=== PATIENT | male | born 1970 | race Caucasian/White ===

== ENCOUNTER 2017-03-01 08:38 | Emergency (ER) | payer BC ==
--- NOTE | ~2017-03-01 | CR181 ---
[facility] Service of [facility] & [facility] RADIOLOGY TEXT RESULTS PATIENT: MONET SMITH LOCATION: [facility] : 66 UNIT #: [id number] AGE: [address]: Minal Núñez SEX: M ORDER DR: [id number] [facility] [address] [place], [place] [address] [id number] MR#: [id number] Acc #: [id number] NAME: MONET SMITH : 1970 SEX: M STUDY DATE/TIME: 03/01/2017 10:03 UNIT: [facility] ROOM: STUDY DESCRIPTION: CR Lumbar Spine 2 or 3 Views Attending Physician: Minal Núñez P.A.-C. Ordering Physician: Minal Núñez P.A.-C. Primary Care Physician: [facility]. MEDICAL IMAGING REPORT This report is preliminary unless electronic signature is present EXAM Lumbosacral spine, 3 views. HISTORY Low back pain beginning Sunday night after heavy lifting. TECHNIQUE AP, lateral, and spot views are submitted. FINDINGS Lumbar alignment is normal. There is marginal spur formation most prominent at L3-4. Vertebral body height is maintained. There is evidence of facet arthrosis at the lower 3 lumbar levels. CONCLUSION Lumbar degenerative disc and facet disease. No acute findings. Dictated by... Carroll Mayes M.D. THIS IS AN ELECTRONICALLY VERIFIED REPORT Carroll Mayes M.D. at 03/04/2017 9:18 AM LI/lulu TD: 03/01/2017 12:21 JOB #: [id number] MEDICAL IMAGING REPORT Page 1 of 1 COPY
[2017-03-01 10:08] LABS: URINE SOURCE CLEAN CATCH
[2017-03-01 10:21] LABS: URINE APPEARANCE CLEAR; URINE BILIRUBIN NEG (NEG); URINE BLOOD NEG (NEG); URINE COLOR YELLOW; URINE GLUCOSE NEG (NEG); URINE KETONE NEG (NEG); URINE LEUKOCYTE ESTERASE NEG (NEG); URINE NITRATE NEG (NEG); URINE PH 7.5 (5-8); URINE PROTEIN NEG (NEG); URINE SPECIFIC GRAVITY 1.016 (1.003-1.035); URINE UROBILINOGEN 0.2 MG/DL (NEG)
[2017-03-01 10:30] LABS: CULTURE INDICATED? NO
== END 2017-03-01 11:02 | disposition home or self-care (01) ==
LOC: CED 08:38
PROVIDERS: Physician Assistant
DX: S39.012A Strain of muscle, fascia and tendon of lower back, initial encounter (principal); R03.0 Elevated blood-pressure reading, without diagnosis of hypertension; M51.36 Other intervertebral disc degeneration, lumbar region; E78.5 Hyperlipidemia, unspecified; F41.9 Anxiety disorder, unspecified; F32.9 Major depressive disorder, single episode, unspecified; Z98.890 Other specified postprocedural states; Z87.891 Personal history of nicotine dependence; X50.9XXA Other and unspecified overexertion or strenuous movements or postures, initial encounter; Y92.009 Unspecified place in unspecified non-institutional (private) residence as the place of occurrence of the external cause
CPT/HCPCS: 72100; 81003; 96372; 99283; J1885